=== PATIENT | female | born 1990 | race Caucasian/White ===

== ENCOUNTER 2018-10-13 19:37 | Emergency (ER) | payer MEDICAID ==
[~2018-10-13] VITALS: Ht 165.1 cm; Wt 77.0 kg
[2018-10-13 20:53] LABS: BASOPHILS % (AUTO) 0.5 % (0-1); EOSINOPHILS # (AUTO) 0.2 X10'3 (0-0.9); EOSINOPHILS % (AUTO) 3.2 % (0-6); HEMATOCRIT 41.8 % (35.0-45.0); HEMOGLOBIN 13.6 g/dl (12.0-16.0); MEAN CORPUSCULAR HEMOGLOBIN 27.9 PG (27.0-31.0); MEAN CORPUSCULAR HGB CONC 32.6 g/dL (33.0-36.5); MEAN CORPUSCULAR VOLUME 85.5 FL (78-98); MEAN PLATELET VOLUME 7.6 FL (7.4-10.4); MONOCYTES # (AUTO) 0.6 X10'3 (0-0.9); MONOCYTES % (AUTO) 8.4 % (2-12); NEUTROPHILS # (AUTO) 3.9 X10'3 (1.8-7.7); NEUTROPHILS % (AUTO) 57.9 % (42-75); PLATELET COUNT 240 X10'3 (140-440); RED BLOOD COUNT 4.89 X10'6 (4.20-5.60); RED CELL DISTRIBUTION WIDTH 17.1 % (11.5-14.5); WHITE BLOOD COUNT 6.8 X10'3 (4.5-11.0)
[2018-10-13 21:02] LABS: ALANINE AMINOTRANSFERASE 81 U/L (12-78); ALBUMIN 3.9 G/DL (3.4-5.0); ALKALINE PHOSPHATASE 96 IU/L (46-116); ANION GAP 11 (8-16); ASPARTATE AMINO TRANSFERASE 107 U/L (10-37); BILIRUBIN,TOTAL 0.4 MG/DL (0.1-1.0); BLOOD UREA NITROGEN 11 MG/DL (7-18); BUN/CREATININE RATIO 14.1 (6.6-38.0); CHLORIDE 105 MMOL/L (99-107); CREATININE 0.78 MG/DL (0.40-0.90); GLUCOSE 95 MG/DL (70-104); POTASSIUM 4.1 MMOL/L (3.5-5.1); SODIUM 140 MMOL/L (135-145); TOTAL CARBON DIOXIDE 23.6 MMOL/L (24-32); TOTAL PROTEIN 7.7 G/DL (6.4-8.2); eGFR 89 ML/MIN
[2018-10-13 22:57] LABS: CLARITY,URINE CLOUDY (Clear); GLUCOSE, URINE NEGATIVE (Neg); KETONES,URINE TRACE mg/dl (Neg); LEUKOCYTE ESTERASE ,URINE MODERATE (Neg); NITRITES, URINE NEGATIVE (Neg); OCCULT BLOOD,URINE MODERATE (Neg); PH,URINE 5.5 (4.8-8.0); PROTEIN,URINE TRACE mg/dl (Neg); UROBILINOGEN,URINE 0.2 E.U/dL (0.2-1.0)
[2018-10-13 23:00] LABS: UA COLLECTION TYPE VOIDED
[2018-10-13 23:01] LABS: COLOR,URINE DARK YELLOW (Yellow)
[2018-10-13 23:06] VITALS: BP 122/71
[2018-10-13 23:07] LABS: BACTERIA,URINE 2+ /HPF (Neg); MUCUS STRANDS MANY /LPF (Neg); SQUAMOUS EPITHELIAL CELL,UR MANY /LPF (FEW); WBC,URINE 50-100 /HPF (0-4)
[2018-10-13] MEDS ORDERED: acetaminophen 325mg tablet PO ONE (23:50)
[2018-10-13] MEDS ORDERED: ketorolac trometh inj. 60 MG/2 ML VIAL IM ONE (23:50)
[2018-10-13 23:57] LABS: URINE HCG NEGATIVE (NEG)
[2018-10-14 00:04] LABS: LIPASE 96 U/L (73-393)
[2018-10-14] MEDS ORDERED: CEPH250T PO (00:38)
== END 2018-10-14 03:09 | disposition home or self-care (01) ==
LOC: ER 19:39
DX: R10.84 Generalized abdominal pain (principal); Z79.899 Other long term (current) drug therapy
CPT/HCPCS: 36415; 80053; 81001; 81025; 83690; 85025; 96372; 99283; J1885